=== PATIENT | female | born 1940 | race Caucasian/White ===

== ENCOUNTER 2019-03-06 17:02 | Emergency (ER) | payer MEDICARE, MEDICAID ==
[~2019-03-06] VITALS: Ht 152.4 cm; Wt 60.0 kg
[2019-03-06] MEDS ORDERED: SODIUM CHLORIDE FLUSH 10ML SYR IVF ONE (17:30)
[2019-03-06] MEDS ORDERED: ASPIRIN 325 MG TABLET PO ONE (17:30)
--- NOTE | 2019-03-06 17:37 | NUR ---
pt to ed for palpitations x1 week. pt connected to monitors. vss. pa to bs for assessment. awaiting orders.
[2019-03-06] MEDS ORDERED: ASPIRIN 325 MG TABLET ONE (17:41)
--- NOTE | 2019-03-06 17:44 | NUR ---
TASK RN: PT MEDICATED WITH 325MG ASPIRIN PO.
[2019-03-06 17:49] LABS: BASOPHILS # (AUTO) 0.04 x10^3/uL (0-0.1); BASOPHILS % (AUTO) 1 % (0-1); EOSINOPHILS # (AUTO) 0.16 x10^3/uL (0-0.4); EOSINOPHILS % (AUTO) 2 % (1-7); LYMPHOCYTES # (AUTO) 2.35 x10^3/uL (1-3.4); LYMPHOCYTES % (AUTO) 32 % (22-44); MD NO; MEAN CORPUSCULAR HEMOGLOBIN 33.2 pg (27.0-34.8); MEAN CORPUSCULAR HGB CONC 33.7 g/dL (32.4-35.8); MEAN CORPUSCULAR VOLUME 98.5 fL (80-100); MEAN PLATELET VOLUME 8.3 fL (7.4-10.4); MONOCYTES # (AUTO) 0.36 x10^3/uL (0.2-0.8); MONOCYTES % (AUTO) 5 % (2-9); NEUTROPHILS # (AUTO) 4.53 x10^3/uL (1.8-6.8); NEUTROPHILS % (AUTO) 61 % (42-75); PLATELET COUNT 299 x10^3/uL (130-400); RED BLOOD COUNT 4.61 x10^6/uL (3.82-5.3); RED CELL DISTRIBUTION WIDTH 13.6 % (9.6-15.2)
--- NOTE | 2019-03-06 17:52 | NUR ---
MANUAL BP: 168/84
[2019-03-06 17:59] LABS: ALANINE AMINOTRANSFERASE 26 U/L (12-78); ALBUMIN 4.1 g/dL (3.4-5.0); ANION GAP 8 mmol/L (5-15); CALCIUM 9.4 mg/dL (8.5-10.1); CHLORIDE 110 mmol/L (98-107); CREATININE 0.63 mg/dL (0.55-1.02)
[2019-03-06 18:04] LABS: ALKALINE PHOSPHATASE 148 U/L (45-117); BILIRUBIN,TOTAL 0.4 mg/dL (0.2-1.0); TOTAL PROTEIN 8.6 g/dL (6.4-8.2); TROPONIN I < 0.015 ng/mL (0.000-0.045)
--- NOTE | 2019-03-06 18:09 | NUR ---
BREAK RN: RECEIVED BEDSIDE REPORT FROM ROGELIO MYLES RN. PT BEING TAKEN TO IMAGING AT THIS TIME. LAURA.
--- NOTE | 2019-03-06 18:16 | NUR ---
BREAK RN: BEDSIDE REPORT TO MAXIMUS SALDANA.
[2019-03-06] MEDS ORDERED: OMNIPAQUE 350 MG/ML, 100ML BOTTLE ONE (18:25)
--- NOTE | 2019-03-06 18:52 | NUR ---
pt resting in room. vss. no needs expressed. call light within reach. awaiting cta.
--- NOTE | 2019-03-06 19:56 | NUR ---
pt resting in room. vss. no needs expressed. call light within reach. awaiting further orders.
[2019-03-06 20:39] VITALS: BP 165/90
== END 2019-03-06 20:43 | disposition home or self-care (01) ==
LOC: ED 19:25
DX: M48.54XA Collapsed vertebra, not elsewhere classified, thoracic region, initial encounter for fracture (principal); J45.909 Unspecified asthma, uncomplicated; E11.9 Type 2 diabetes mellitus without complications; I10 Essential (primary) hypertension; I25.2 Old myocardial infarction; R00.2 Palpitations
CPT/HCPCS: 36415; 71045; 71275; 80053; 84443; 84484; 85025; 93005; 99284; Q9967

== ENCOUNTER 2019-06-21 16:40 | Inpatient (IN) | payer MEDICAID, MEDICARE ==
[~2019-06-21] VITALS: Ht 152.4 cm; Wt 57.1 kg
--- NOTE | 2019-06-21 17:01 | NUR ---
PATIENT BROUGHT IN BY [facility] WITH C/O SYNCOPAL EPISODE. UNKNOWN LENGTH OF LOC THOUGH APPEARS MAY HAVE BEEN VERY SHORT PER BYSTANDARDS. CURRENTLY AAOX4. DOES STATES SOME DIZZYNESS SINCE HITTING HEAD. NO NEURO DEFICTS NOTED. PT WITH INCREASED EXCERTIONAL SOB OVER LAST FEW WEEKS. DENIES PRODUCTIVE COUGH. FSBS FROM [facility] READ "HIGH." HAS NOT TAKEN ANY INSULION FOR AWHILE. DOES NOT CHECK BLOOD SUGAR. UNSURE HOW LONG IT HAS BEEN HIGH. HAS BEEN SUFFERING FROM POLYDIPSIA, POLYPHAGIA, AND POLYURIA. MILD AMOUNT OF DISTRESS NOTED. BREATHING REGULAR AND UNLABORED. WILL CONTINUE TO MONITOR.
--- NOTE | 2019-06-21 17:15 | NUR ---
RESIDENT AT BEDSIDE SEEING PATIENT.
[2019-06-21] MEDS ORDERED: LORazepam 2 MG/ML, 1ML ONE (17:27)
--- NOTE | 2019-06-21 17:35 | NUR ---
PATIENT YELLING FROM ROOM FOR HELP. WHEN HELP ARRIVED FROM ANOTHER STAFF MEMBER PATIENT WAS HAVING PARTIAL SEIZURE WITH LEFT FACE AND LEFT ARM. STAFF WENT TO GET ERMD, ON ARRIVAL BACK TO ROOM PATIENT WAS HAVING FULL SEIZURE FOR 1 TO 2 MINUTES. POSTICAL FOR SHORT PERIOD OF TIME. 0.5MG OF ATIVAN GIVEN VIA VERBAL. SEIZURE PADS IN PLACE. MAXIMUS CALLEJAS AT BEDSIDE TO HELP GET PATIENT CHANGED AND TO PREFORM STRIGHT CATH PER PATIENT REQUEST.
--- NOTE | 2019-06-21 17:53 | NUR ---
PATIENT CHANGED AND CLEANED BY MAXIMUS CALLEJAS. STRIGHT CATH URINE COMPLETED BY MAXIMUS CALLEJAS. PATIENT WITH LEFT HAND/ARM CONTRACTED WITH SEVERE WEAKNESS. BROUGHT TO ERMD ATTENTION. ERMD AT BEDSIDE TO ASSESS. NO FURTHER ORDERS. PT TO CT VIA FABIAN.
[2019-06-21 17:57] LABS: MICROSCOPIC NOT IND
[2019-06-21 17:58] LABS: CULTURE INDICATED? NO
[2019-06-21] MEDS ORDERED: LORazepam 2 MG/ML, 1ML IVPush ONE (18:00)
--- NOTE | 2019-06-21 18:23 | NUR ---
LAB COMPLETED BLOOD DRAW.
[2019-06-21 18:27] LABS: PH, VENOUS 7.357 pH (7.320-7.420)
[2019-06-21 18:28] LABS: O2 FLOW RA L/min
[2019-06-21 18:32] LABS: BASOPHILS # (AUTO) 0.04 x10^3/uL (0-0.1); BASOPHILS % (AUTO) 0 % (0-1); EOSINOPHILS # (AUTO) 0.07 x10^3/uL (0-0.4); EOSINOPHILS % (AUTO) 1 % (1-7); LYMPHOCYTES # (AUTO) 1.03 x10^3/uL (1-3.4); LYMPHOCYTES % (AUTO) 10 % (22-44); MD NO; MEAN CORPUSCULAR HEMOGLOBIN 33.3 pg (27.0-34.8); MEAN CORPUSCULAR HGB CONC 33.8 g/dL (32.4-35.8); MEAN CORPUSCULAR VOLUME 98.5 fL (80-100); MEAN PLATELET VOLUME 9.1 fL (7.4-10.4); MONOCYTES # (AUTO) 0.43 x10^3/uL (0.2-0.8); MONOCYTES % (AUTO) 4 % (2-9); NEUTROPHILS # (AUTO) 8.97 x10^3/uL (1.8-6.8); NEUTROPHILS % (AUTO) 85 % (42-75); PLATELET COUNT 294 x10^3/uL (130-400); RED BLOOD COUNT 4.53 x10^6/uL (3.82-5.3); RED CELL DISTRIBUTION WIDTH 13.3 % (9.6-15.2)
[2019-06-21 18:40] LABS: ALANINE AMINOTRANSFERASE 28 U/L (12-78); ALBUMIN 3.7 g/dL (3.4-5.0); ANION GAP 9 mmol/L (5-15); CALCIUM 9.8 mg/dL (8.5-10.1); CHLORIDE 96 mmol/L (98-107); CREATININE 1.09 mg/dL (0.55-1.02); INTERNATIONAL NORMALIZED RATIO 1.06 (0.93-1.1); PROTHROMBIN TIME 11.1 Seconds (9.6-11.5)
[2019-06-21 18:42] LABS: ALKALINE PHOSPHATASE 217 U/L (45-117); BILIRUBIN,TOTAL 0.6 mg/dL (0.2-1.0); TOTAL PROTEIN 8.1 g/dL (6.4-8.2)
[2019-06-21 19:00] LABS: ACETONE, SERUM Small (20mg/dL) mg/dL (Negative)
--- NOTE | 2019-06-21 19:14 | NUR ---
PATIENT ASSISTED TO RESTROOM. PT ASKING FOR FOODS AND DRINKS WITH LOTS OF SUGAR. ATTEMPTED TO EDUCATE PATIENT ABOUT FOODS HAVING LOTS OF SUGAR. EXPLAINED THAT BS IS EXTREMLY HIGH AND SHE NEEDS TO BE AWARE OF WHAT SHE IS EATING.
--- NOTE | 2019-06-21 19:15 | NUR ---
dr hong spoke with dr graves
[2019-06-21] MEDS ORDERED: SODIUM CHLORIDE 0.9% 1,000 ML IV ONE (19:30)
[2019-06-21] MEDS ORDERED: INSULIN REGULAR 100 UNITS/ML, 3ML VIAL IVPush ONE (19:30)
[2019-06-21] MEDS ORDERED: LEVETIRACETAM 100 MG/ML, 5ML IVPB ONE (19:30)
[2019-06-21] MEDS ORDERED: REGULAR INSULIN 62.5 UNITS in SODIUM CHLORIDE 0.9% 249.375 ML IV PRN (19:34)
--- NOTE | 2019-06-21 19:48 | NUR ---
MEDICATIONS REQUESTED FROM PHARMACY.
[2019-06-21] MEDS ORDERED: LEVETIRACETAM 750 MG in SODIUM CHLORIDE 0.9% 100 ML IV ONE (20:00)
[2019-06-21] MEDS ORDERED: SODIUM CHLORIDE 0.9% 1,000ML IVBOLUS ONE (20:00)
--- NOTE | 2019-06-21 20:36 | NUR ---
Fsbg reading of "hi" noted on glucometer. Glucose of 699 to be used for initial glucose.
[2019-06-21] MEDS ORDERED: ONDANSETRON 2MG/ML, 2ML IVPush PRN (21:00)
--- NOTE | 2019-06-21 21:08 | NUR ---
Insulin drip stopped per [facility] [place] orders and pt to be initiated on hospital orders. Floor nurse aware and awaiting med tele bed.
[2019-06-21] MEDS ORDERED: SODIUM CHLORIDE 0.9% 1,000 ML IV SCH (21:30)
[2019-06-21] MEDS: SODIUM CHLORIDE 0.9% 1,000 ML IV SCH (22:11)
[2019-06-21] MEDS: INSULIN GLARGINE 100 UNITS/ML, PEN SQ-INSULIN SCH (22:12)
[2019-06-21] MEDS: INSULIN LISPRO 100 UNITS/ML, PEN SQ-INSULIN SCH (22:13)
[2019-06-21] MEDS ORDERED: GABAPENTIN 300 MG CAPSULE ONE (23:14)
[2019-06-21] MEDS ORDERED: CYCLOBENZAPRINE 10 MG TABLET ONE (23:15)
[2019-06-21] MEDS: GABAPENTIN 300 MG CAPSULE PO SCH (23:18)
[2019-06-21] MEDS: CYCLOBENZAPRINE 10 MG TABLET PO SCH (23:18)
[2019-06-22 01:22] VITALS: BP 133/65
[2019-06-22] MEDS: SODIUM CHLORIDE 0.9% 1,000 ML IV SCH ×3 (04:43→15:02)
[2019-06-22 05:31] LABS: CHLORIDE 110 mmol/L (98-107)
[2019-06-22 05:48] LABS: ANION GAP 6 mmol/L (5-15); CALCIUM 8.8 mg/dL (8.5-10.1); CHOLESTEROL, TOTAL 121 mg/dL (140-239); CREATININE 0.58 mg/dL (0.55-1.02); HDL CHOL % 34 % (28-40); HDL CHOLESTEROL (DIRECT) 41 mg/dL (40-60); LDL CHOLESTEROL,CALCULATED 62 mg/dL (54-169); LDL/HDL RATIO 1.5 (0.5-3.0); TRIGLYCERIDES 90 mg/dL (50-200); VLDL CHOLESTEROL 18 mg/dL (0-25)
[2019-06-22 06:41] LABS: BASOPHILS % (AUTO) 0 % (0-1); EOSINOPHILS # (AUTO) 0.19 x10^3/uL (0-0.4); EOSINOPHILS % (AUTO) 2 % (1-7); LYMPHOCYTES # (AUTO) 2.31 x10^3/uL (1-3.4); LYMPHOCYTES % (AUTO) 23 % (22-44); MD NO; MEAN CORPUSCULAR HEMOGLOBIN 33.6 pg (27.0-34.8); MEAN CORPUSCULAR HGB CONC 33.8 g/dL (32.4-35.8); MEAN CORPUSCULAR VOLUME 99.5 fL (80-100); MEAN PLATELET VOLUME 8.4 fL (7.4-10.4); MONOCYTES # (AUTO) 0.65 x10^3/uL (0.2-0.8); MONOCYTES % (AUTO) 7 % (2-9); NEUTROPHILS # (AUTO) 6.71 x10^3/uL (1.8-6.8); NEUTROPHILS % (AUTO) 68 % (42-75); PLATELET COUNT 268 x10^3/uL (130-400); RED BLOOD COUNT 3.96 x10^6/uL (3.82-5.3); RED CELL DISTRIBUTION WIDTH 13.3 % (9.6-15.2)
[2019-06-22] MEDS: ASPIRIN 81 MG TABLET CHEW PO/NG SCH (08:05)
[2019-06-22] MEDS: INSULIN LISPRO 100 UNITS/ML, PEN SQ-INSULIN SCH ×4 (08:05→20:26)
[2019-06-22] MEDS: CYCLOBENZAPRINE 10 MG TABLET PO SCH ×3 (08:06→20:27)
[2019-06-22] MEDS: GABAPENTIN 300 MG CAPSULE PO SCH ×2 (08:06→20:27)
[2019-06-22] MEDS ORDERED: LEVETIRACETAM 500 MG TABLET PO SCH (09:00)
[2019-06-22 10:13] VITALS: BP 120/82
[2019-06-22] MEDS ORDERED: DEXTROSE 50%, 50ML SYRINGE IVPush PRN (12:00)
[2019-06-22] MEDS ORDERED: GLUCAGON 1 MG IM PRN (12:00)
[2019-06-22] MEDS ORDERED: DEXTROSE 4 GM TAB.CHEW PO PRN (12:00)
[2019-06-22 13:33] VITALS: BP 113/74
[2019-06-22] MEDS: INSULIN GLARGINE 100 UNITS/ML, PEN SQ-INSULIN SCH (20:25)
[2019-06-22] MEDS: ATORVASTATIN 40 MG TABLET PO SCH (20:26)
[2019-06-22] MEDS: SODIUM CHLORIDE FLUSH 10ML SYR IVF SCH (20:26)
[2019-06-22 20:35] VITALS: BP 123/72
[2019-06-23] MEDS: SODIUM CHLORIDE 0.9% 1,000 ML IV SCH (01:36)
[2019-06-23 01:52] VITALS: BP 119/80
[2019-06-23] MEDS: ASPIRIN 81 MG TABLET CHEW PO/NG SCH (08:31)
[2019-06-23] MEDS: CYCLOBENZAPRINE 10 MG TABLET PO SCH (08:32)
[2019-06-23] MEDS: SODIUM CHLORIDE FLUSH 10ML SYR IVF SCH ×2 (08:32→22:02)
[2019-06-23] MEDS: GABAPENTIN 300 MG CAPSULE PO SCH ×2 (08:33→22:02)
[2019-06-23] MEDS: INSULIN LISPRO 100 UNITS/ML, PEN SQ-INSULIN SCH ×4 (08:33→22:02)
[2019-06-23 09:48] VITALS: BP 127/84
[2019-06-23 13:40] VITALS: BP 130/80
[2019-06-23 20:29] VITALS: BP 121/83
[2019-06-23] MEDS: INSULIN GLARGINE 100 UNITS/ML, PEN SQ-INSULIN SCH (22:01)
[2019-06-23] MEDS: ATORVASTATIN 40 MG TABLET PO SCH (22:02)
[2019-06-24 00:50] VITALS: BP 132/74
[2019-06-24 04:42] LABS: ANION GAP 4 mmol/L (5-15); CALCIUM 7.9 mg/dL (8.5-10.1); CHLORIDE 109 mmol/L (98-107)
[2019-06-24 04:43] LABS: CREATININE 0.48 mg/dL (0.55-1.02)
[2019-06-24 07:48] VITALS: BP 136/85
[2019-06-24] MEDS: ASPIRIN 81 MG TABLET CHEW PO/NG SCH (08:59)
[2019-06-24] MEDS: SODIUM CHLORIDE FLUSH 10ML SYR IVF SCH (08:59)
[2019-06-24] MEDS: GABAPENTIN 300 MG CAPSULE PO SCH (08:59)
[2019-06-24] MEDS: INSULIN LISPRO 100 UNITS/ML, PEN SQ-INSULIN SCH ×3 (09:00→17:02)
[2019-06-24 13:30] VITALS: BP 137/78
[2019-06-24] MEDS ORDERED: LEVE500T53 PO (15:52)
[2019-06-24] MEDS ORDERED: ALBU8.5H8 INH (15:52)
[2019-06-24] MEDS ORDERED: GABA300C10 PO (15:52)
[2019-06-24] MEDS ORDERED: LISI5TAB7 PO (15:52)
[2019-06-24] MEDS ORDERED: LEVETIRACETAM 500 MG TABLET PO SCH (16:00)
== END 2019-06-24 17:54 | disposition home health service (06) | DRG 100 ==
LOC: ED 19:26 → EDIP 19:55 → 4WST 21:58
PROVIDERS: ADMIT Internal Medicine; ATTEND Family Medicine
PROC: 0T9B70Z Drainage of Bladder with Drainage Device, Via Natural or Artificial Opening (ICD-10-PCS; principal; 2019-06-21)
DX: G40.209 Localization-related (focal) (partial) symptomatic epilepsy and epileptic syndromes with complex partial seizures, not intractable, without status epilepticus (principal); E11.00 Type 2 diabetes mellitus with hyperosmolarity without nonketotic hyperglycemic-hyperosmolar coma (NKHHC); G45.9 Transient cerebral ischemic attack, unspecified; E11.65 Type 2 diabetes mellitus with hyperglycemia; I25.10 Atherosclerotic heart disease of native coronary artery without angina pectoris; I10 Essential (primary) hypertension; J45.909 Unspecified asthma, uncomplicated; Z91.14 Patient's other noncompliance with medication regimen; I25.2 Old myocardial infarction; Z79.4 Long term (current) use of insulin; Z79.899 Other long term (current) drug therapy; Z91.19 Patient's noncompliance with other medical treatment and regimen; Z89.512 Acquired absence of left leg below knee; Z88.8 Allergy status to other drugs, medicaments and biological substances
CPT/HCPCS: 36415; 70450; 70553; 80048; 80053; 80061; 81003; 82010; 82803; 82962; 83735; 83930; 84100; 85025; 85610; 85730; 93005; 93306; 93880; 95819; 96374; 96375; G0378; J1815; J1953; 92523-GN; G0515-GN; J2060; J7030